=== PATIENT | female | born 1990 | race Two or more races ===

== ENCOUNTER 2018-08-16 09:35 | Emergency (ER) | payer OTHER ==
[2018-08-16 09:43] VITALS: BP 135/88
--- NOTE | 2018-08-16 10:02 | EDPHY ---
H & P Stated Complaint: closed head injury occurred 7am today, hit head on metal bar, denies loc Time Seen by Provider: 08/16/18 09:43 HPI/ROS: Chief Complaint: Head injury HPI: 27-year-old woman struck the vertex of her head on a metal bar when she stood up underneath the low deck this morning at 7:00 a.m.. She did not have a loss of consciousness. She has full recollection of events. She is complaining of a sore spot an abrasion on her head. She is feeling mildly nauseated and mildly dizzy. No vomiting. She has a mild headache at the site as well. No neck pain. No numbness or weakness. No confusion. No history of prior head injuries in the past. ROS: 10 systems were reviewed and were negative except those elements noted in the HPI. PMH: Denies Social History: No smoking Family History: non-contributory Physical Exam: Gen: Awake, Alert, Airway Intact HEENT: Head: Patient has a small hematoma on the vertex of the scalp with a small overlying abrasion Eyes: PERRLA, EOMI Nose: No epistaxis Mouth: Normal dentition, Airway patent Face: No deformity Neck: non-tender, no stepoff, Full ROM without pain Ext: atramatic, full ROM Skin: no rash Neuro: CN II-XII intact, Strength 5/5 in all extremities, sensation intact in all extremities - Personal History LMP (Females 10-55): Now - Medical/Surgical History Other PMH: denies - Social History Smoking Status: Former smoker Constitutional: Initial Vital Signs Temperature (C) 37.0 C 08/16/18 09:39 Heart Rate 98 08/16/18 09:39 Respiratory Rate 18 08/16/18 09:39 Blood Pressure 135/88 H 08/16/18 09:39 O2 Sat (%) 96 08/16/18 09:39 O2 Delivery Mode Room Air Allergies/Adverse Reactions: No Known Allergies Allergy (Unverified 08/16/18 09:38) Home Medications: Medication Instructions Recorded NK [No Known Home Meds] 08/16/18 Medical Decision Making ED Course/Re-evaluation: 19-year-old woman with a head injury this morning. No loss of conscious. Full memory of events. No indications for CT scanning at this time. She has been given head injury precautions and information regarding concussion. She will take Tylenol as needed for headache. Avoid ibuprofen for the next 48 hr. I have cautioned her to avoid screen time and alcohol. Follow up with primary care physician. Will also give her concussion related instructions. Departure - Departure Disposition: Home, Routine, Self-Care Clinical Impression: Head injury Condition: Good Instructions: Head Injury (ED), Concussion (ED) Additional Instructions: You may take Tylenol 1000 mg every 6 hr as needed for headache. Apply ice for 15 min of every hour while awake. Avoid ibuprofen for the next 48 hr. Avoid alcohol and interactive screen time for the next 48 hr. Follow up with primary care physician in 2-3 days for further evaluation. Return to the emergency department for increasing headache, multiple episodes of vomiting, confusion, lethargy, numbness, weakness, or any other concerns. Referrals: Tay Burrows MD [[facility] [place] - As per Instructions
[2018-08-16] MEDS ORDERED: ACETAMINOPHEN 500 MG TAB PO ONE (10:03)
== END 2018-08-16 10:13 | disposition home or self-care (01) ==
LOC: CED 09:35
DX: S00.01XA Abrasion of scalp, initial encounter (principal); W22.09XA Striking against other stationary object, initial encounter; Y92.89 Other specified places as the place of occurrence of the external cause; Y93.9 Activity, unspecified; Y99.9 Unspecified external cause status; Z87.891 Personal history of nicotine dependence